=== PATIENT | female | born 1940 | race Caucasian/White ===

== ENCOUNTER 2017-12-29 09:41 | Inpatient (IN) | payer MEDICARE, MEDICAID ==
[~2017-12-29] VITALS: Ht 152.4 cm; Wt 63.0 kg
[2017-12-29] MEDS: INSULIN LISPRO 100 UNITS/ML SUBCUT SCH (08:20)
[~2017-12-29 09:41] MED LIST: ACTOS; HCTZ; MOTRIN; RANITIDINE; VERAPAMIL
[2017-12-29] MEDS ORDERED: ONDANSETRON HCL 4MG/2ML VIAL IV STA (10:24)
[2017-12-29] MEDS ORDERED: MORPHINE SULFATE 4 MG/ML CPJ (NOT FOR IM USE) IV STA (10:24)
[2017-12-29 11:10] LABS: BASOPHILS % 0.7 % (0.0-2.0); EOSINOPHILS % 0.3 % (0.0-5.0); HEMATOCRIT. 38.4 % (36.0-48.0); HEMOGLOBIN. 12.8 g/dL (12.0-16.0); LYMPHOCYTES % 10.4 % (20.0-50.0); MEAN CORPUSCULAR HEMOGLOBIN 28.6 pg (28.0-32.0); MEAN CORPUSCULAR VOLUME 85.8 fL (81.0-99.0); MEAN PLATELET VOLUME 7.4 fl (7.4-10.4); MONOCYTES % 1.1 % (2.0-8.0); NEUTROPHILS % 87.5 % (40.0-76.0); PLATELET 339 x1000/uL (130-400); RED BLOOD CELL COUNT 4.48 mill/uL (4.2-5.4); RED CELL DISTRIBUTION WIDTH 15.3 % (11.6-14.6)
[2017-12-29 11:18] LABS: CHLORIDE 99 mEq/L (98-107)
[2017-12-29 11:19] LABS: PROTHROMBIN TIME 10.7 sec (9.4-11.6)
[2017-12-29 12:21] LABS: CLARITY URINE CLEAR (CLEAR); COLOR URINE YELLOW (YELLOW); KETONES URINE 2+ (NEGATIVE); LEUKOCYTE ESTERASE URINE NEGATIVE (NEGATIVE); NITRITE URINE NEGATIVE (NEGATIVE); OCCULT BLOOD URINE NEGATIVE (NEGATIVE); PH URINE 8.5 (4.5-8.0); PROTEIN URINE NEGATIVE (NEGATIVE); SPECIFIC GRAVITY URINE 1.012 (1.005-1.030); UROBILINOGEN URINE 0.2 E.U./dL (0.2-1.0)
[2017-12-29] MEDS ORDERED: MORPHINE SULFATE 4 MG/ML CPJ (NOT FOR IM USE) IV ONE (13:30)
[2017-12-29] MEDS ORDERED: METRONIDAZOLE 500 MG PREMIX 100 ML IV ONE (15:00)
[2017-12-29] MEDS ORDERED: LEVOFLOXACIN 750MG PREMIX 150 ML IV ONE (15:00)
[2017-12-29] MEDS ORDERED: SODIUM CHLORIDE 0.9% 1,000 ML IV ONE (15:25)
[2017-12-29] MEDS ORDERED: DEXTROSE 50% WATER 50ML SYRINGE IV PRN (19:30)
[2017-12-29] MEDS ORDERED: ACETAMINOPHEN 650MG SUPP PR PRN (19:30)
[2017-12-29] MEDS ORDERED: DIPHENHYDRAMINE 50MG/ML VIAL IV PRN (19:30)
[2017-12-29] MEDS ORDERED: CLONIDINE 0.1MG TABLET PO PRN (19:30)
[2017-12-29] MEDS: MORPHINE SULFATE 4 MG/ML CPJ (NOT FOR IM USE) IV PRN (20:07)
[2017-12-29 22:15] VITALS: BP 133/66
[2017-12-29 23:00] VITALS: BP 122/57
[2017-12-29] MEDS ORDERED: ONDANSETRON 4MG ODT PO PRN (23:00)
[2017-12-29 23:30] VITALS: BP 126/61
[2017-12-30] VITALS: BP 122/57
[2017-12-30] MEDS: MORPHINE SULFATE 4 MG/ML CPJ (NOT FOR IM USE) IV PRN ×2 (02:51→18:14)
[2017-12-30] MEDS: PIPERACILLIN/TAZ 3.375G PREMIX 50 ML IV SCH ×3 (03:30→21:28)
[2017-12-30 04:00] VITALS: BP 116/54
[2017-12-30] MEDS: BLOOD SUGAR DIAGNOSTIC STRIP TEST SCH ×5 (06:22→23:02)
[2017-12-30 06:39] LABS: HEMATOCRIT. 32.3 % (36.0-48.0); HEMOGLOBIN. 10.9 g/dL (12.0-16.0); MEAN CORPUSCULAR HEMOGLOBIN 28.8 pg (28.0-32.0); MEAN CORPUSCULAR VOLUME 85.6 fL (81.0-99.0); PLATELET 225 x1000/uL (130-400); RED BLOOD CELL COUNT 3.78 mill/uL (4.2-5.4)
[2017-12-30 07:30] LABS: CHLORIDE 105 mEq/L (98-107)
[2017-12-30 08:00] VITALS: BP 107/53
[2017-12-30] MEDS: PANTOPRAZOLE SODIUM 40 MG/VIAL IV SCH (08:55)
[2017-12-30 12:00] VITALS: BP 116/53
[2017-12-30] MEDS: INSULIN LISPRO 100 UNITS/ML SUBCUT SCH ×3 (12:00→23:02)
[2017-12-30] MEDS ORDERED: POTASSIUM CHLORIDE INJ 40 MEQ in DEXT 5% WATER 500 ML IV NR (13:00)
[2017-12-30 13:45] LABS: PLATELET ESTIMATE NORMAL
[2017-12-30 16:00] VITALS: BP 120/70
[2017-12-30 20:00] VITALS: BP 118/45
[2017-12-30] MEDS: SODIUM CHLORIDE 0.9% 1,000 ML IV SCH (21:01)
[2017-12-31] VITALS: BP 103/50
[2017-12-31] MEDS: SODIUM CHLORIDE 0.9% 1,000 ML IV SCH ×2 (01:26→18:54)
[2017-12-31 04:00] VITALS: BP 111/53
[2017-12-31] MEDS: PIPERACILLIN/TAZ 3.375G PREMIX 50 ML IV SCH ×3 (05:00→21:41)
[2017-12-31] MEDS: MORPHINE SULFATE 4 MG/ML CPJ (NOT FOR IM USE) IV PRN ×2 (05:25→21:48)
[2017-12-31] MEDS: BLOOD SUGAR DIAGNOSTIC STRIP TEST SCH ×4 (05:27→23:50)
[2017-12-31] MEDS: INSULIN LISPRO 100 UNITS/ML SUBCUT SCH ×4 (05:28→23:50)
[2017-12-31 07:14] LABS: BASOPHILS % 0.1 % (0.0-2.0); EOSINOPHILS % 0.2 % (0.0-5.0); HEMATOCRIT. 30.1 % (36.0-48.0); HEMOGLOBIN. 10.1 g/dL (12.0-16.0); LYMPHOCYTES % 9.3 % (20.0-50.0); MEAN CORPUSCULAR HEMOGLOBIN 28.9 pg (28.0-32.0); MEAN CORPUSCULAR VOLUME 86.5 fL (81.0-99.0); MEAN PLATELET VOLUME 7.4 fl (7.4-10.4); MONOCYTES % 3.4 % (2.0-8.0); PLATELET 212 x1000/uL (130-400); RED BLOOD CELL COUNT 3.48 mill/uL (4.2-5.4); RED CELL DISTRIBUTION WIDTH 15.7 % (11.6-14.6)
[2017-12-31 07:21] LABS: CHLORIDE 106 mEq/L (98-107)
[2017-12-31 07:34] LABS: PHOSPHORUS 1.9 mg/dL (2.5-4.9)
[2017-12-31 08:00] VITALS: BP 125/63
[2017-12-31] MEDS: PANTOPRAZOLE SODIUM 40 MG/VIAL IV SCH (10:21)
[2017-12-31] MEDS ORDERED: POTASSIUM PHOS,M-BASIC-D-BASIC 20 MMOL in DEXT 5% WATER 243.3333 ML IV NR (10:30)
[2017-12-31] MEDS ORDERED: MAGNESIUM 2 G PREMIX 50 ML IV NR (10:30)
[2017-12-31 12:00] VITALS: BP 106/51
[2017-12-31 16:00] VITALS: BP 112/60
[2017-12-31 20:00] VITALS: BP 136/66
[2018-01-01] VITALS: BP 131/64
[2018-01-01 04:00] VITALS: BP 131/66
[2018-01-01] MEDS: PIPERACILLIN/TAZ 3.375G PREMIX 50 ML IV SCH ×3 (05:11→23:18)
[2018-01-01] MEDS: SODIUM CHLORIDE 0.9% 1,000 ML IV SCH (05:41)
[2018-01-01] MEDS: INSULIN LISPRO 100 UNITS/ML SUBCUT SCH ×3 (06:00→18:00)
[2018-01-01] MEDS: BLOOD SUGAR DIAGNOSTIC STRIP TEST SCH ×3 (06:19→18:49)
[2018-01-01 06:34] LABS: CHLORIDE 109 mEq/L (98-107)
[2018-01-01 06:39] LABS: PHOSPHORUS 2.2 mg/dL (2.5-4.9)
[2018-01-01 08:00] VITALS: BP 133/68
[2018-01-01] MEDS ORDERED: MAGNESIUM 2 G PREMIX 50 ML IV SCH (10:00)
[2018-01-01] MEDS ORDERED: POTASSIUM PHOS,M-BASIC-D-BASIC 20 MMOL in DEXT 5% WATER 243.3333 ML IV SCH (10:00)
[2018-01-01] MEDS: PANTOPRAZOLE SODIUM 40 MG/VIAL IV SCH (10:52)
[2018-01-01] MEDS ORDERED: SIMETHICONE 40 MG/0.6 ML 30ML ONE (11:34)
[2018-01-01] MEDS ORDERED: IOHEXOL-300 100 ML BOTTLE ONE (11:34)
[2018-01-01 12:00] VITALS: BP 124/55
[2018-01-01] MEDS ORDERED: ALBUMIN HUMAN 12.5G/250ML (5%) IV ONE (15:08)
[2018-01-01] MEDS ORDERED: FENTANYL CITRATE/PF 50MCG/ML 2ML VIAL ONE (15:15)
[2018-01-01] MEDS ORDERED: PROPOFOL 200MG/20ML VIAL IV ONE (15:15)
[2018-01-01] MEDS ORDERED: NEOSTIGMINE METHYLSULFATE 1MG/ML 10 ML VIAL ONE (15:15)
[2018-01-01] MEDS ORDERED: ROCURONIUM BROMIDE 10MG/ML VIAL 5ML IV ONE (15:15)
[2018-01-01] MEDS ORDERED: MIDAZOLAM HCL 2 MG/2 ML VIAL ONE (15:15)
[2018-01-01] MEDS ORDERED: EPHEDRINE SULFATE 50MG/ML VIAL ONE (15:16)
[2018-01-01] MEDS ORDERED: GLYCOPYRROLATE 0.2 MG/ML 2ML VIAL ONE (15:16)
[2018-01-01] MEDS ORDERED: CEFAZOLIN SODIUM 1000MG/VIAL ONE (15:16)
[2018-01-01] MEDS ORDERED: PHENYLEPHRINE HCL 10 MG/ML 1ML (IV VIAL) IV ONE (15:16)
[2018-01-01] MEDS ORDERED: SUCCINYLCHOLINE CHLORIDE 200MG/10ML VIAL IV ONE (15:16)
[2018-01-01] MEDS ORDERED: SODIUM CHLORIDE 0.9% 10ML VIAL ONE (15:16)
[2018-01-01] MEDS ORDERED: ONDANSETRON HCL 4MG/2ML VIAL ONE (15:16)
[2018-01-01] MEDS ORDERED: METOCLOPRAMIDE HCL 10MG/2ML VIAL ONE (15:16)
[2018-01-01 16:00] VITALS: BP 143/66
[2018-01-01] MEDS ORDERED: SODIUM CHLORIDE 0.9% 1,000 ML IV ONE (16:24)
[2018-01-01] MEDS ORDERED: MEPERIDINE HCL/PF 25MG/ML CPJ IV PRN (16:30)
[2018-01-01] MEDS ORDERED: HYDROMORPHONE HCL/PF 2MG/ML CPJ IV PRN (16:30)
[2018-01-01] MEDS ORDERED: ONDANSETRON HCL 4MG/2ML VIAL IV PRN (16:30)
[2018-01-01] MEDS ORDERED: LABETALOL HCL 5MG/ML VIAL 20ML IV ONE (16:37)
[2018-01-01 20:00] VITALS: BP 137/69
[2018-01-02] VITALS: BP 146/70
[2018-01-02] MEDS: BLOOD SUGAR DIAGNOSTIC STRIP TEST SCH ×4 (00:24→18:23)
[2018-01-02 04:00] VITALS: BP 130/64
[2018-01-02] MEDS: INSULIN LISPRO 100 UNITS/ML SUBCUT SCH ×4 (06:00→17:59)
[2018-01-02 08:00] VITALS: BP 142/65
[2018-01-02 08:20] LABS: HEMATOCRIT. 33.4 % (36.0-48.0); MEAN CORPUSCULAR HEMOGLOBIN 28.5 pg (28.0-32.0); MEAN CORPUSCULAR VOLUME 86.7 fL (81.0-99.0); RED BLOOD CELL COUNT 3.85 mill/uL (4.2-5.4); RED CELL DISTRIBUTION WIDTH 15.8 % (11.6-14.6)
[2018-01-02 08:55] LABS: CHLORIDE 108 mEq/L (98-107)
[2018-01-02 09:04] LABS: PHOSPHORUS 2.3 mg/dL (2.5-4.9)
[2018-01-02] MEDS: PANTOPRAZOLE SODIUM 40 MG/VIAL IV SCH (09:59)
[2018-01-02] MEDS: MORPHINE SULFATE 4 MG/ML CPJ (NOT FOR IM USE) IV PRN ×2 (10:18→23:39)
[2018-01-02 11:34] LABS: MEAN PLATELET VOLUME 8.1 fl (7.4-10.4); PLATELET 204 x1000/uL (130-400)
[2018-01-02 11:39] LABS: PLATELET ESTIMATE NORMAL
[2018-01-02 12:30] VITALS: BP 132/71
[2018-01-02 16:09] VITALS: BP 143/71
[2018-01-02] MEDS: PIPERACILLIN/TAZ 3.375G PREMIX 50 ML IV SCH ×2 (17:47→23:38)
[2018-01-02 20:00] VITALS: BP 141/62
[2018-01-02] MEDS: SODIUM CHLORIDE 0.9% 1,000 ML IV SCH (23:38)
[2018-01-03] VITALS: BP 126/66
[2018-01-03 04:00] VITALS: BP 125/60
[2018-01-03] MEDS: BLOOD SUGAR DIAGNOSTIC STRIP TEST SCH ×3 (06:00→12:16)
[2018-01-03] MEDS: INSULIN LISPRO 100 UNITS/ML SUBCUT SCH ×3 (06:00→12:43)
[2018-01-03] MEDS: PIPERACILLIN/TAZ 3.375G PREMIX 50 ML IV SCH ×2 (06:08→14:25)
[2018-01-03 08:00] VITALS: BP 135/61
[2018-01-03] MEDS: PANTOPRAZOLE SODIUM 40 MG/VIAL IV SCH (09:45)
[2018-01-03] MEDS: MORPHINE SULFATE 4 MG/ML CPJ (NOT FOR IM USE) IV PRN (11:21)
[2018-01-03 12:00] VITALS: BP 132/72
[2018-01-03 15:04] VITALS: BP 135/61
== END 2018-01-03 16:25 | disposition home or self-care (01) | DRG 444 ==
LOC: ER 09:46 → 6EST 15:31 → ENRESERV 21:08
PROVIDERS: ADMIT Internal Medicine; ATTEND Internal Medicine
PROC: BF11YZZ Fluoroscopy of Biliary and Pancreatic Ducts using Other Contrast (ICD-10-PCS; 2018-01-01)
PROC: 0F798ZZ Dilation of Common Bile Duct, Via Natural or Artificial Opening Endoscopic (ICD-10-PCS; 2018-01-01)
PROC: 0FC98ZZ Extirpation of Matter from Common Bile Duct, Via Natural or Artificial Opening Endoscopic (ICD-10-PCS; principal; 2018-01-01 15:00)
DX: K80.62 Calculus of gallbladder and bile duct with acute cholecystitis without obstruction (principal); K85.10 Biliary acute pancreatitis without necrosis or infection; E78.00 Pure hypercholesterolemia, unspecified; I10 Essential (primary) hypertension; E11.9 Type 2 diabetes mellitus without complications; R74.0 Nonspecific elevation of levels of transaminase and lactic acid dehydrogenase [LDH]; Z82.49 Family history of ischemic heart disease and other diseases of the circulatory system; Z83.3 Family history of diabetes mellitus; Z85.038 Personal history of other malignant neoplasm of large intestine; Z90.49 Acquired absence of other specified parts of digestive tract; Z93.3 Colostomy status; Z79.899 Other long term (current) drug therapy
CPT/HCPCS: 36415; 74176; 74181; 74330; 76705; 80048; 80053; 81003; 82962; 83690; 83735; 84100; 85025; 85610; 86850; 86900; 93005; 93970; 96365; 96366; 96368; 96375; 96376; 99285; A4216; C1726; C1769; C1893; C9113; J0330; J0690; J1815; J1956; J2250; J2270; J2370; J2405; J2543; J2704; J2710; J2765; J3010; J3475; J3480; J3490; J7030; J7060; P9041; Q9967

== ENCOUNTER 2023-06-23 11:59 | Emergency (ER) | payer MEDICARE, MEDICAID ==
[~2023-06-23] VITALS: Ht 152.4 cm; Wt 60.0 kg
[2023-06-23 12:03] VITALS: BP 169/79; PULSE 85; RESP 16; TEMP 98.6; O2SAT 99
== END 2023-06-23 13:49 | disposition home or self-care (01) ==
LOC: ER 12:30
DX: S01.01XA Laceration without foreign body of scalp, initial encounter (principal); E11.9 Type 2 diabetes mellitus without complications; E78.00 Pure hypercholesterolemia, unspecified; I10 Essential (primary) hypertension; Z98.890 Other specified postprocedural states; R51.9 Headache, unspecified; W19.XXXA Unspecified fall, initial encounter; Y93.89 Activity, other specified; Y92.89 Other specified places as the place of occurrence of the external cause; Y99.8 Other external cause status
CPT/HCPCS: 12001; 99284